=== PATIENT | female | born 1955 | race Caucasian/White ===

== ENCOUNTER → 2018-02-17 08:46 | Outpatient (CLI) | payer OTHER, SELFPAY ==
--- NOTE | 2018-02-17 08:51 | DI.MRI.S_ITS ---
PROCEDURE: MR CERVICAL SPINE WO CON INDICATIONS: axial neck pain TECHNIQUE: Noncontrast sagittal T1 spin echo and T2 fast spin echo, sagittal STIR, foraminal oblique sagittal T2 fast spin echo, and axial gradient echo or T2 fast spin echo through the cervical spine. COMPARISON: , , C-SPINE WITHOUT CONTRAST, 07/14/2015, 14:59. FINDINGS: Image quality: Mildly degraded by patient motion during image acquisition. Alignment and Curvature: There is normal bony alignment. Bone Marrow: Marrow demonstrates normal overall signal. Spinal Cord: Visualized spinal cord has normal size and signal. No cerebellar tonsillar herniation. Paraspinous Soft Tissues: No paravertebral masses. Prevertebral soft tissues are normal in thickness. C2-C3: Mild degenerative disc disease which is asymmetrically greater on the right than the left, with a slight posterior right-sided disc bulge posteriorly, and extending into the posterolateral recess. Facet osteoarthritis also is greater on the right, resulting in mild to moderate right and no left foraminal stenosis, and no impingement on the cervical cord at this level. C3-C4: The degenerative disc disease at this level is moderate in severity, slightly greater on the left than the right, and associated with asymmetric facet osteoarthritis greater on the left than the right. There is mild right and moderate left foraminal stenosis as result, but no appreciable impingement by degenerative change on the cervical cord. C4-C5: Asymmetric right greater than left degenerative disc disease with a posterior transverse broad-based disc bulge slightly greater on the right than the left resulting in effacement of CSF from the anterior cervical cord and thecal sac area, right greater than left. Foraminal stenosis is also greater on the right, resulting in mild right and no identifiable left foraminal stenosis. C5-C6: Mild degenerative disc disease, mild posterior broad-based transverse disc bulge without impingement on the cervical cord, but there is effacement of CSF from the anterior thecal sac at this level. The facet osteoarthritis is mild, symmetric, and produces only minimal foraminal stenosis without expected nerve root impingement. C6-C7: Mild degenerative disc disease, small posterior broad-based transverse disc bulge. No significant spinal or foraminal stenosis. C7-T1: Quality of visualization is blurred on the axial imaging but there appears to be a posterior broad-based transverse disc bulge that is slight, and effaces CSF only to a mild degree at the anterior border of the cervical cord at this level. No definite foraminal stenosis. IMPRESSION: Multilevel symmetric and asymmetric degenerative changes as discussed above predominantly involving the facet joints but also involving the cervical discs and adjacent anterior cervical cord at C3-4 and C4-5. No disc herniation is found. No definite acute disease is seen. With reference to the prior MR scanning 07/14/15 there has been only a slight degree of interval increased facet and disc degeneration. Dictated by: David Perry M.D. on 02/18/2018 at 16:31 Approved by: David Perry M.D. on 02/18/2018 at 16:37
== END ==
PROVIDERS: PCP Internal Medicine; Visit Provider Physical Medicine & Rehabilitation
DX: M50.30 Other cervical disc degeneration, unspecified cervical region (principal); M47.812 Spondylosis without myelopathy or radiculopathy, cervical region
CPT/HCPCS: 72141

== ENCOUNTER 2018-04-21 08:41 | Outpatient (CLI) | payer OTHER, SELFPAY ==
[2018-04-21] VITALS (9 sets, daily range): BP systolic 108–129; BP diastolic 73–94; PULSE 76–110; RESP 10–18; TEMP 36.2; O2SAT 97–100
--- NOTE | 2018-04-21 08:42 | DI.RAD.S_ITS ---
PROCEDURE: PAIN C/T INTERLAMINAR INJECT INDICATIONS: Cervical stenosis with radiculopathy FINDINGS: Fluoroscopic spot filming was performed to verify placement of spinal needles at the C6 level(s), as seen on the films. Appropriate location(s) of the needle tip(s) was confirmed by injection of iodinated contrast. IMPRESSION: Intraoperative imaging for needle injection lower cervical spine Dictated by: Karthik Helms M.D. on 04/22/2018 at 8:27 Approved by: Karthik Helms M.D. on 04/22/2018 at 8:29
--- NOTE | 2018-04-21 09:38 | PM.PROC.1 ---
Procedures Date/Time Date of procedure: 04/21/18 Time of procedure: 10:05 General Procedure description: PREOP DIAGNOSIS 1. CERVICAL STENOSIS, 2. CERVICAL HNP WITH UPPER EXTREMITY RADICULAR FEATURES, POST OP DIAGNOSIS 1. CERVICAL STENOSIS, 2. CERVICAL HNP WITH UPPER EXTREMITY RADICULAR FEATURES, PROCEDURES 1. FLUORSCOPICALLY GUIDED CONTRAST CONTROLLED INTERLAMINAR EPIDURAL STEROID INJECTION - C6/7 TL AFSHIN PHYSICIAN: Romulo Tam, INDICATIONS Michelle is referred by Dr. Romero for treatment of Cervical HNP with Upper Extremity Paresthesias FINDINGS Cervical Stenosis due to disc deterioration and nerve root irritation and nerve root irritation DESCRIPTION OF PROCEDURE Fluoroscopically guided, contrast-controlled C6/7 translaminar epidural steroid injection with conscious sedation. Following denial of allergy and review of potential side effects and complications, including, but not necessarily limited to, infection, allergic reaction, local tissue breakdown, temporary as well as permanent nerve injury, stroke, paralysis, and possible , the patient indicated that patient understood and agreed to proceed. An informed consent document was signed by the patient, witnessed by a nurse, and placed in the patient's chart. Additionally, other treatment options including modalities, medications, and physical therapy were reviewed with the patient. After review of previous anaesthesic history and IV conscious sedation the patient was deemed safe to proceed with todays procedure with IV conscious sedation as ASA class II designation. Safety time-out was performed to confirm patient ID, procedure to be performed and site of procedure. IV sedation was accomplished with a combination of 3mg of Versed administered by the RN after DO order, titrated to patient comfort during the course of the procedure while the patient remained responsive to all verbal commands. In the prone position, following sterile prep and drape of the cervical region, the C6/7 translaminar space was identified fluoroscopically. The skin was anesthetized via a 25-gauge 1.5-inch needle with 1% lidocaine solution. At this point, a 25-gauge, 2.5-inch short bevel spinal needle was atraumatically introduced and advanced under fluoroscopic guidance into epidural space at the C6/7 translaminar space. Depth was confirmed on lateral view. Radiological data, including multiple fluoroscopic views of the cervical spine, reveal a spinal needle at the C6/7 translaminar space. Lateral views then show placement of the needle in the epidural space. Subsequent views show contrast material flowing superiorly and inferiorly in the epidural space. DSA fluoroscopy with live contrast injection, once again, confirmed no vascular or intrathecal uptake. At this point, using loss of resistance technique with saline and air, the epidural space was entered. Following negative aspiration, injection of approximately 1.5 cc of Isovue-200 with live fluoroscopy in the AP view confirmed epidural flow in the epidural space without vascular or intrathecal uptake observed. Subsequently, a test dose of 1 cc of 1% lidocaine solution was injected and patient was observed for two minutes without signs or symptoms of complications, including abdominal pain, shortness of breath, bilateral upper or lower extremity weakness, nausea and vomiting, prior to steroid injection. At this point, 3 cc or 30 mg of dexamethasone was then injected without incident. The patient tolerated the procedure well without signs or symptoms of complications prior to being transferred to the recovery area for further monitoring, The patient was then transferred to the recovery area where they were observed for an appropriate period of time after the injection. The patient reported a VAS score of 6 prior to the procedure and a post-procedure VAS of 0. Total Fluoroscopy Time: 37.0 seconds Total Conscious Time: 24min POST OP INSTRUCTIONS The patient was provided a Pain Log to continue to record their response to the target-specific procedure prior to follow-up visit with the referring provider. Additionally, specific post-injection care instructions and a contact number to our office were provided if concerns arise regarding possible complications associated with the procedure are suspected. Romulo Tam, Complications: none
[2018-04-21] MEDS: IOPAMIDOL 15 ML VIAL 3 ML INJ (10:02)
[2018-04-21] MEDS: LIDOCAINE 1% 20 ML INJ 5 ML INJ (10:02)
[2018-04-21] MEDS: MIDAZOLAM 5 MG/5 ML VIAL IV (10:02)
[2018-04-21] MEDS: DEXAMETHASONE 10 MG/ML VIAL 30 MG INJ (10:02)
--- NOTE | 2018-04-22 17:20 | PC.NURSE ---
POST PROCEDURE FOLLOW UP CALL MADE, LEFT MSG.
== END 2018-04-21 10:36 | disposition home or self-care (01) ==
LOC: RAD 08:42
PROVIDERS: PCP Internal Medicine; Visit Provider Physical Medicine & Rehabilitation
DX: M50.123 Cervical disc disorder at C6-C7 level with radiculopathy (principal); M48.02 Spinal stenosis, cervical region
CPT/HCPCS: 62321; 99152; J1100; J2250

== ENCOUNTER 2019-02-16 09:58 | Outpatient (CLI) | payer OTHER, SELFPAY ==
[2019-02-16] VITALS (8 sets, daily range): BP systolic 113–151; BP diastolic 68–90; PULSE 81–89; RESP 16–20; TEMP 36.9; O2SAT 96–100
--- NOTE | 2019-02-16 10:40 | DI.RAD.S_ITS ---
PROCEDURE: PAIN C/T INTERLAMINAR INJECT INDICATIONS: SPINAL STENOSIS FINDINGS: Fluoroscopic spot filming was performed to verify placement of spinal needles at the C6-C7 level(s), as labeled on the films. Appropriate location(s) of the needle tip(s) was confirmed by injection of iodinated contrast. Dictated by: Jonathan Hawthorne M.D. on 02/16/2019 at 12:46 Approved by: Jonathan Hawthorne M.D. on 02/16/2019 at 12:47
[2019-02-16] MEDS: MIDAZOLAM 5 MG/5 ML VIAL IV (11:23)
[2019-02-16] MEDS: fentaNYL 100 MCG/2 ML INJ 50 MCG IV (11:24)
[2019-02-16] MEDS: DEXAMETHASONE 10 MG/ML VIAL 20 MG INJ (11:28)
[2019-02-16] MEDS: LIDOCAINE 1% 20 ML INJ 5 ML INJ (11:28)
--- NOTE | 2019-02-16 11:35 | PC.NURSE ---
ASSISTING PT OFF TABLE AND TRANSPORTING TO POST PROC AREA IN STABLE CONDITION
--- NOTE | 2019-02-16 11:40 | P.PCN_ITS ---
Procedures Date/Time Date of procedure: 02/16/19 Time of procedure: 11:39 General Procedure description: PREOP DIAGNOSIS 1. CERVICAL STENOSIS, 2. CERVICAL HNP WITH UPPER EXTREMITY RADICULAR FEATURES, POST OP DIAGNOSIS 1. CERVICAL STENOSIS, 2. CERVICAL HNP WITH UPPER EXTREMITY RADICULAR FEATURES, PROCEDURES 1. FLUORSCOPICALLY GUIDED CONTRAST CONTROLLED INTERLAMINAR EPIDURAL STEROID INJECTION - C6/7 TL AFSHIN PHYSICIAN: DO KERWIN Carranza Michelle is referred by Dr. Romero for treatment of Cervical HNP with Upper Extremity Paresthesias. FINDINGS Cervical Stenosis due to disc deterioration and nerve root irritation and nerve root irritation DESCRIPTION OF PROCEDURE Fluoroscopically guided, contrast-controlled C6/7 translaminar epidural steroid injection with conscious sedation. Following denial of allergy and review of potential side effects and complications, including, but not necessarily limited to, infection, allergic reaction, local tissue breakdown, temporary as well as permanent nerve injury, stroke, paralysis, and possible , the patient indicated that patient understood and agreed to proceed. An informed consent document was signed by the patient, witnessed by a nurse, and placed in the patient's chart. Additionally, other treatment options including modalities, medications, and physical therapy were reviewed with the patient. After review of previous anaesthesic history and IV conscious sedation the patient was deemed safe to proceed with todays procedure with IV conscious sedation as ASA class II designation. Safety time-out was performed to confirm patient ID, procedure to be performed and site of procedure. IV sedation was accomplished with a combination of 4mg of Versed and 50mcg of Fentanyl administered by the RN after DO order, titrated to patient comfort during the course of the procedure while the patient remained responsive to all verbal commands. In the prone position, following sterile prep and drape of the cervical region, the C6/7 translaminar space was identified fluoroscopically. The skin was anesthetized via a 25-gauge 1.5-inch needle with 1% lidocaine solution. At this point, a 25-gauge, 2.5-inch short bevel spinal needle was atraumatically i ntroduced and advanced under fluoroscopic guidance into epidural space at the C6/7 translaminar space. Depth was confirmed on lateral view. Radiological data, including multiple fluoroscopic views of the cervical spine, reveal a spinal needle at the C6/7 translaminar space. Lateral views then show placement of the needle in the epidural space. Subsequent views show contrast material flowing superiorly and inferiorly in the epidural space. DSA fluoroscopy with live contrast injection, once again, confirmed no vascular or intrathecal uptake. At this point, using loss of resistance technique with saline and air, the epidural space was entered. Following negative aspiration, injection of approximately 1.5 cc of Isovue-200 with live fluoroscopy in the AP view confirmed epidural flow in the epidural space without vascular or intrathecal uptake observed. Subsequently, a test dose of 1 cc of 1% lidocaine solution was injected and patient was observed for two minutes without signs or symptoms of complications, including abdominal pain, shortness of breath, bilateral upper or lower extremity weakness, nausea and vomiting, prior to steroid injection. At this point, 2cc or 20mg of dexamethasone was then injected without incident. The patient tolerated the procedure well without signs or symptoms of complications prior to being transferred to the recovery area for further noelle toring, The patient was then transferred to the recovery area where they were observed for an appropriate period of time after the injection. The patient reported a VAS score of 6 prior to the procedure and a post-procedure VAS of 0. Total Fluoroscopy Time: 37.0 seconds Total Conscious Time: 24min POST OP INSTRUCTIONS The patient was provided a Pain Log to continue to record their response to the target-specific procedure prior to follow-up visit with the referring provider. Additionally, specific post-injection care instructions and a contact number to our office were provided if concerns arise regarding possible complications associated with the procedure are suspected. Romulo Tam DO Complications: none
--- NOTE | 2019-02-16 11:57 | PC.NURSE ---
Pt returned from procedure via w/c awake and alert and able to move from w/c to chair with standby assist. Resumed monitoring from Sisi DERAS.
== END 2019-02-16 12:10 ==
PROVIDERS: PCP Internal Medicine; Visit Provider Physical Medicine & Rehabilitation
DX: M48.02 Spinal stenosis, cervical region (principal); M50.123 Cervical disc disorder at C6-C7 level with radiculopathy
CPT/HCPCS: 62321; 99152; J1100; J2250; J3010

== ENCOUNTER 2019-12-08 09:11 | Outpatient (CLI) | payer OTHER, SELFPAY ==
[2019-12-08] VITALS (9 sets, daily range): BP systolic 136–166; BP diastolic 93–105; PULSE 89–104; RESP 16; TEMP 36.3; O2SAT 97–100
--- NOTE | 2019-12-08 09:13 | DI.RAD.S_ITS ---
PROCEDURE: PAIN C/T INTERLAMINAR INJECT INDICATIONS: SPINAL STENOSIS FINDINGS: Fluoroscopic spot filming was performed to verify placement of spinal needles at the C6-C7 level(s), as labeled on the films. Appropriate location(s) of the needle tip(s) was confirmed by injection of iodinated contrast. Dictated by: Jonathan Hawthorne M.D. on 12/08/2019 at 13:33 Approved by: Jonathan Hawthorne M.D. on 12/08/2019 at 13:34
[2019-12-08] MEDS: MIDAZOLAM 5 MG/5 ML VIAL IV (10:46)
[2019-12-08] MEDS: fentaNYL 100 MCG/2 ML INJ 50 MCG IV (10:46)
[2019-12-08] MEDS: IOPAMIDOL 15 ML VIAL 3 ML INJ (10:52)
[2019-12-08] MEDS: DEXAMETHASONE 10 MG/ML VIAL 20 MG INJ (10:52)
[2019-12-08] MEDS: BUPIVACAINE 0.25% (PF) VIAL 2 ML INJ (10:52)
--- NOTE | 2019-12-08 10:56 | PC.NURSE ---
ASSISTING PT OFF TABLE AND TRANSPORTING TO POST PROC AREA IN STABLE CONDITION. PASSING RN CARE OF PT OFF TO SHAYNE Calderon RN.
--- NOTE | 2019-12-08 11:00 | P.PCN_ITS ---
Procedures Date/Time Date of procedure: 12/08/19 Time of procedure: 11:00 General Procedure description: PREOP DIAGNOSIS 1. CERVICAL STENOSIS, 2. CERVICAL HNP WITH UPPER EXTREMITY RADICULAR FEATURES, POST OP DIAGNOSIS 1. CERVICAL STENOSIS, 2. CERVICAL HNP WITH UPPER EXTREMITY RADICULAR FEATURES, PROCEDURES 1. FLUORSCOPICALLY GUIDED CONTRAST CONTROLLED INTERLAMINAR EPIDURAL STEROID INJECTION - C6/7 TL AFSHIN PHYSICIAN: DO KERWIN Carranza Michelle is referred by Dr. Romero for treatment of Cervical HNP with Upper Extremity Paresthesias. FINDINGS Cervical Stenosis due to disc deterioration and nerve root irritation and nerve root irritation DESCRIPTION OF PROCEDURE Fluoroscopically guided, contrast-controlled C6/7 translaminar epidural steroid injection with conscious sedation. Following review of allergy and review of potential side effects and complications, including, but not necessarily limited to, infection, allergic reaction, local tissue breakdown, temporary as well as permanent nerve injury, stroke, paralysis, and possible , the patient indicated that patient understood and agreed to proceed. An informed consent document was signed by the patient, witnessed by a nurse, and placed in the patient's chart. Additionally, other treatment options including modalities, medications, and physical therapy were reviewed with the patient. After review of previous anaesthesic history and IV conscious sedation the patient was deemed safe to proceed with todays procedure with IV conscious sedation as ASA class II designation. Safety time-out was performed to confirm patient ID, procedure to be performed and site of procedure. IV sedation was accomplished with a combination of 3mg of Versed and 50mcg of Fentanyl administered by the RN after DO order, titrated to patient comfort during the course of the procedure while the patient remained responsive to all verbal commands. In the prone position, following sterile prep and drape of the cervical region, the C6/7 translaminar space was identified fluoroscopically. The skin was anesthetized via a 25-gauge 1.5-inch needle with 1% lidocaine solution. At this point, a 25-gauge, 2.5-inch short bevel spinal needle was atraumatically i ntroduced and advanced under fluoroscopic guidance into epidural space at the C6/7 translaminar space. Depth was confirmed on lateral view. Radiological data, including multiple fluoroscopic views of the cervical spine, reveal a spinal needle at the C6/7 translaminar space. Lateral views then show placement of the needle in the epidural space. Subsequent views show contrast material flowing superiorly and inferiorly in the epidural space. DSA fluoroscopy with live contrast injection, once again, confirmed no vascular or intrathecal uptake. At this point, using loss of resistance technique with saline and air, the epidural space was entered. Following negative aspiration, injection of approximately 1.5 cc of Isovue-200 with live fluoroscopy in the AP view confirmed epidural flow in the epidural space without vascular or intrathecal uptake observed. Subsequently, a test dose of 1 cc of 1% lidocaine solution was injected and patient was observed for two minutes without signs or symptoms of complications, including abdominal pain, shortness of breath, bilateral upper or lower extremity weakness, nausea and vomiting, prior to steroid injection. At this point, 3cc or 30mg of dexamethasone was then injected without incident. The patient tolerated the procedure well without signs or symptoms of complications prior to being transferred to the recovery area for further noelle toring, The patient was then transferred to the recovery area where they were observed for an appropriate period of time after the injection. The patient reported a VAS score of 6 prior to the procedure and a post-procedure VAS of 0. Total Fluoroscopy Time: 23seconds Total Conscious Time: 24min POST OP INSTRUCTIONS The patient was provided a Pain Log to continue to record their response to the target-specific procedure prior to follow-up visit with the referring provider. Additionally, specific post-injection care instructions and a contact number to our office were provided if concerns arise regarding possible complications associated with the procedure are suspected. Romulo Tam DO Complications: none
--- NOTE | 2019-12-08 11:20 | PC.NURSE ---
1105: Received patient post procedure, awake, alert, and pleasant, by Sisi LOCKETT VSS upon arrival.
== END 2019-12-08 11:15 | disposition home or self-care (01) ==
LOC: RAD 09:13
PROVIDERS: PCP Internal Medicine; Referring Provider Physical Medicine & Rehabilitation; Visit Provider Physical Medicine & Rehabilitation
DX: M48.02 Spinal stenosis, cervical region (principal); M50.123 Cervical disc disorder at C6-C7 level with radiculopathy; R20.2 Paresthesia of skin
CPT/HCPCS: 62321; 99152; J1100; J2250; J3010

== ENCOUNTER → 2020-08-07 12:20 | Outpatient (CLI) | payer OTHER, SELFPAY ==
--- NOTE | 2020-08-07 12:21 | DI.RAD.S_ITS ---
PROCEDURE: XR CERVICAL SPINE 4V OR 5V INDICATIONS: UPDATE IMAGES TECHNIQUE: 5 views of the cervical spine acquired. COMPARISON: [facility], RF, CERVICAL TRANSLAMINAR, 08/27/2017, 10:12. [facility], MR, MR CERVICAL SPINE WO CON, 02/17/2018, 9:17. FINDINGS: Bones: No fractures or dislocations to the C7 level. Mild anterolisthesis of C4 on C5. Mild degenerative changes. Oblique images demonstrate moderate neural foraminal stenosis at the right C3-C4. Soft tissues: No prevertebral soft tissue swelling. IMPRESSION: Mild anterolisthesis of C4 on C5. Mild degenerative changes. Moderate neural foraminal stenosis at right C3-C4. Dictated by: Bonifacio Barreto M.D. on 08/07/2020 at 17:02 Approved by: Bonifacio Barreto M.D. on 08/07/2020 at 17:08
== END ==
PROVIDERS: PCP Internal Medicine; Referring Provider Physical Medicine & Rehabilitation; Visit Provider Physical Medicine & Rehabilitation
DX: M48.02 Spinal stenosis, cervical region (principal); M47.812 Spondylosis without myelopathy or radiculopathy, cervical region; M43.12 Spondylolisthesis, cervical region; M50.30 Other cervical disc degeneration, unspecified cervical region
CPT/HCPCS: 72050

== ENCOUNTER → 2020-08-14 08:49 | Outpatient (CLI) | payer OTHER, SELFPAY ==
[2020-08-14 11:35] LABS: COVID19 -Nasal RAPID Negative (Negative)
== END ==
PROVIDERS: PCP Internal Medicine; Visit Provider Physician Assistant
DX: Z11.59 Encounter for screening for other viral diseases (principal)
CPT/HCPCS: 87635

== ENCOUNTER 2020-08-15 07:19 | Outpatient (CLI) | payer OTHER, SELFPAY ==
[2020-08-15] VITALS (10 sets, daily range): BP systolic 110–144; BP diastolic 72–92; PULSE 95–98; RESP 10–19; TEMP 36.4; O2SAT 94–100
--- NOTE | 2020-08-15 07:20 | DI.RAD.S_ITS ---
PROCEDURE: PAIN C/T FACET INJ/BLK 1ST L INDICATIONS: SPINAL STENOSIS COMPARISON: [facility], CR, XR CERVICAL SPINE 4V OR 5V, 08/07/2020, 11:22. FINDINGS: Fluoroscopic spot filming was performed to verify placement of spinal needles at the C4-C5, C5-C6, and C6-C7 levels on the right, as labeled on the films. Appropriate location(s) of the needle tip(s) was confirmed by injection of iodinated contrast. IMPRESSION: Intraprocedural examination within normal limits. Dictated by: Ton Fair M.D. on 08/15/2020 at 8:46 Approved by: Ton Fair M.D. on 08/15/2020 at 8:47
[2020-08-15] MEDS: fentaNYL 100 MCG/2 ML INJ 50 MCG IV (08:16)
[2020-08-15] MEDS: MIDAZOLAM 5 MG/5 ML VIAL IV (08:19)
[2020-08-15] MEDS: IOPAMIDOL 15 ML VIAL 3 ML INJ (08:22)
[2020-08-15] MEDS: DEXAMETHASONE 10 MG/ML VIAL 30 MG INJ (08:22)
[2020-08-15] MEDS: BUPIVACAINE 0.5% (PF) VIAL 2 ML INJ (08:23)
--- NOTE | 2020-08-15 08:33 | P.PCN_ITS ---
Date/Time/Diagnoses Date of procedure: 08/15/20 Time of procedure: 08:34 Pre-procedure diagnosis: 1. FACET ARTHROPATHY 2. AXIAL NECK PAIN Post-procedure diagnosis: same Procedure Notes Procedure: 1. FLUOROSCOPICALLY GUIDED, CONTRAST-CONTROLLED RIGHT C4/5, C5/6 AND C6/7 FACET JOINT INJECTIONS WITH CONSCIOUS SEDATION. Indications: Frances Martinez is referred by Dr. Romero for treatment of Axial Neck Pain Physician: Romulo Tam Total Fluoroscopy time (seconds): 8 Total sedation minutes: 14 Complications: none Procedure in detail & Post-procedure care: DESCRIPTION OF PROCEDURE Fluoroscopically guided, contrast-controlled right C4/5, C5/6 and C6/7 facet joint injections with conscious sedation. Following review of allergy and review of potential side effects and complications, including, but not necessarily limited to, infection, allergic reaction, local tissue breakdown, stroke, temporary or permanent nerve injury and paralysis, the patient indicated that the patient understood and agreed to proceed. An informed consent document was signed by the patient, witnessed by a nurse, and placed in the patient's chart. Additionally, other treatment options including medications, modalities, and physical therapy were reviewed with the patient. After review of previous anaesthesic history and IV conscious sedation the patient was deemed safe to proceed with today?s procedure with IV conscious sedation as ASA class II designation. Safety time-out was performed to confirm patient ID, procedure to be performed and site of procedure. IV sedation was accomplished with a combination of 2mg of Versed and 50mcg of Fentanyl was administered by the RN after DO order, titrated to patient comfort during the course of the procedure while the patient remained responsive to all verbal commands In the prone position, following sterile prep and drape of the cervical spine region, the posterior aspect of the right C4/5, C5/6 and C6/7 facet joints were identified fluoroscopically. The skin was anesthetized via a 25-gauge 1.5-inch needle with 1% lidocaine solution into the corresponding facet joints. At this point, a 25-gauge 2.5-inch spinal needle was atraumatically introduced and advanced under fluoroscopic guidance into the corresponding facet joints. Following negative aspiration, injections of approximately 0.2-cc of Isovue 200 confirmed interarticular placement without vascular uptake. At this point, a total of 1cc including 0.5cc or 5 mg of dexamethasone combined with 0.5cc of 1% lidocaine solution was injected without complication into each of the corresponding facet joints. The procedure tolerated the procedure well without signs or symptoms of complications prior to transfer to the recovery area continued monitoring without incident. The patient was then transferred to the recovery area where they were observed for an appropriate period of time after the injection. The patient reported a VAS score of 7 prior to the procedure and a post- procedure VAS of 0. POST OP INSTRUCTIONS They were provided a Pain Log to continue to record their response to the target-specific procedure prior to their follow-up visit with their referring physician. Additionally, specific post-injection care instructions and a contact number to our office were provided if concerns arise regarding possible complications associated with the procedure are suspected.
--- NOTE | 2020-08-15 10:52 | PC.NURSE ---
pt able to walk on own well prior to discharge, strong steady gait noted.
== END 2020-08-15 08:55 | disposition home or self-care (01) ==
LOC: RAD 07:20
PROVIDERS: PCP Internal Medicine; Referring Provider Internal Medicine; Visit Provider Physical Medicine & Rehabilitation
DX: M47.812 Spondylosis without myelopathy or radiculopathy, cervical region (principal); M48.02 Spinal stenosis, cervical region
CPT/HCPCS: 64490; 64491; 64492; 99152; J1100; J2250; J3010

== ENCOUNTER 2021-02-09 07:33 | Emergency (ER) | payer OTHER, SELFPAY ==
[2021-02-09] VITALS (7 sets, daily range): BP systolic 101–180; BP diastolic 70–116; PULSE 62–114; RESP 16–24; TEMP 37.7; O2SAT 96–100; BMI 24.6
--- NOTE | 2021-02-09 07:57 | ED_ITS ---
HPI - Anxiety General Chief Complaint: Anxiety Stated Complaint: anxiety Time Seen by Provider: 02/09/21 07:51 Source: patient Mode of arrival: Family Vehicle Limitations: no limitations History of Present Illness HPI narrative: Patient is 65-year-old female has a history of a splenectomy, insulinoma--surgically removed years ago is, severe depression and anxiety presenting. She says she is quite anxious and nervous about which she is fully vaccinated. She is here with her sister states that there is more than that. It sounds as though she has some stressors her nephew and new baby are currently living with her aunt sounds as though dad recently. Her medication has initially been managed by her PCP. She has try to get into a psychiatrist unfortunately no one is available. She is feeling overwhelmed. Denies any suicidal or homicidal ideations. Sister states she has had blackouts. She states she yelled and screamed at Family at [place] time and she did again recently she has no memory of doing this. Her mood is quite labile. She has significant insomnia and sleep issues. MD complaint: anxiety Related Data Home Medications Medication Instructions Recorded Confirmed levalbuterol tartrate 45 See Rx Instructions .ROUTE 08/06/18 02/09/21 mcg/actuation aerosol inhaler .COMPLEX 30 Days #15 gram lisinopril 10 mg tablet See Rx Instructions .ROUTE 08/06/18 02/09/21 .COMPLEX 90 Days #90 tab montelukast 10 mg tablet See Rx Instructions .ROUTE 08/06/18 02/09/21 .COMPLEX 90 Days #90 tab omeprazole 20 mg capsule,delayed See Rx Instructions .ROUTE 08/06/18 02/09/21 release .COMPLEX 90 Days #180 cap sucralfate 1 gram tablet See Rx Instructions .ROUTE 08/06/18 02/09/21 .COMPLEX 30 Days #120 tab temazepam 15 mg capsule See Rx Instructions .ROUTE 08/06/18 02/09/21 .COMPLEX 30 Days #30 cap tramadol 50 mg tablet See Rx Instructions .ROUTE 08/06/18 02/09/21 .COMPLEX 30 Days #180 tab buspirone 10 mg tablet 10 mg PO BID 11/20/18 02/09/21 fluoxetine 40 mg capsule 40 mg PO DAILY 11/20/18 02/09/21 clonazepam 0.5 mg tablet 0.5 mg PO BID 08/07/20 02/09/21 Advair HFA 02/09/21 Previous Rx's Medication Instructions Recorded diazepam 10 mg tablet 10 mg PO .COMPLEX PRN #10 tab 08/07/20 celecoxib 200 mg capsule See Rx Instructions .ROUTE 08/10/20 .COMPLEX #90 cap gabapentin 600 mg tablet See Rx Instructions .ROUTE 10/02/20 .COMPLEX #180 tab cyclobenzaprine 10 mg tablet 10 mg PO BID PRN #60 tab 10/16/20 Allergies Allergy/AdvReac Type Severity Reaction Status Date / Time Penicillins [PENICILLINS] Allergy Unknown childhood Verified 08/07/20 13:31 reaction Review of Systems Review of Systems Narrative: GENERAL: Denies chills,fever HEENT: Denies throat pain RESPIRATORY: Denies dyspnea, cough, wheezing CARDIOVASCULAR: Denies chest pain, palpitations GASTROINTESTINAL: Denies nausea, vomiting MUSCULOSKELETAL: Denies extremity pain, injury SKIN: No rash, no laceration, no pruritus NEUROLOGIC: Denies weakness, dizziness, headache, numbness 8 point review of systems is negative except for those stated above and HPI Psychiatric Psychiatric: Reports system reviewed and no additional complaints, except as documented, Reports anxiety, Reports hopelessness, Reports irritability and Reports panic attacks Patient History Surgical History (Updated 08/07/20 @ 14:03 by Romulo Tam DO) Hx of splenectomy Social History Smoking Status: Former smoker Smoking Status: Former smoker alcohol intake frequency: a few times a week Alcohol type: beer Substance Use Type: does not use Exam Initial Vital Signs Initial Vital Signs: Vital Signs Pulse Rate 90 02/09/21 07:42 Pulse Oximetry 100 02/09/21 07:42 GENERAL: A 65-year-old female tearful anxious, good eye contact, good hygiene CARDIOVASCULAR: peripheral pulses in tact, cap refill <2 sec RESPIRATORY: No respiratory distress, speaks in full sentences without difficulty EXTREMITIES: Normal range of motion, no clubbing or edema. Neurovascularly intact NEUROLOGICAL: Cranial nerves II through XII grossly intact. Normal gait and speech. SKIN: Warm, dry, no petechiae, no rashes or lesions. Course Orders Ordered: ED Orders 02/09/21 09:30 COVID19 -Nasal swab/Pre-Proc Stat Discontinued Medications Hydroxyzine Pamoate (Hydroxyzine Pamoate 25 Mg Capsule) 25 mg PO NOW ONE Stop: 02/09/21 15:02 Last Admin: 02/09/21 15:11 Dose: 25 mg Documented by: RICARDO Lorazepam (Lorazepam 0.5 Mg Tablet) 1 mg PO NOW ONE Stop: 02/09/21 07:53 Last Admin: 02/09/21 07:59 Dose: 1 mg Documented by: SATINDER Vital Signs Vital signs: Vital Signs - 8 hr 02/09/21 10:32 02/09/21 10:33 02/09/21 13:26 Pulse Rate 96 H 62 Respiratory Rate 23 Blood Pressure 159/112 H 167/77 H Pulse Oximetry 97 96 96 02/09/21 13:44 02/09/21 15:16 Pulse Rate 109 H 100 H Respiratory Rate 16 Blood Pressure 101/70 145/99 H Pulse Oximetry 96 97 MDM - Anxiety Lab Data Attestation: I reviewed the patient's lab results. Result diagrams: 02/09/21 08:18 02/09/21 08:18 Labs: Lab Results 02/09/21 02/09/21 02/09/21 Range/Units 08:05 08:07 08:18 WBC 7.1 (4.5-11.0) X10^3/uL RBC 4.32 (4.0-5.2) X10^6/uL Hgb 11.8 L (12.0-16.0) g/dL Hct 36.5 (36-46) % MCV 84.6 (80-100) fL MCH 27.4 (26-34) PG MCHC 32.4 (30-36) % RDW 15.7 H (11.6-14.8) % Plt Count 316 (150-400) X10^3/uL Neut % (Auto) 56.4 (50-75) % Lymph % (Auto) 26.2 (25-40) % [facility] % (Auto) 11.5 (3-14) % Eos % (Auto) 5.1 H (2-4) % Baso % (Auto) 0.8 (0-2) % Neut # (Auto) 4000 (0627-0222) /uL Lymph # (Auto) 1800 (4809-7613) /uL [facility] # (Auto) 800 (0-900) /uL Eos # (Auto) 400 (0-450) /uL Baso # (Auto) 100 (0-100) /uL Sodium (137-145) mmol/L Potassium (3.4-5.1) mmol/L Chloride (98-107) mmol/L Carbon Dioxide (22-32) mmol/L BUN (7-17) mg/dL Creatinine (0.52-1.04) mg/dL Estimated GFR (>60) mL/min BUN/Creatinine Ratio (6-22) Glucose (80-110) mg/dL Calcium (8.4-10.2) mg/dL Magnesium (1.6-2.3) mg/dL Total Bilirubin (0.2-1.3) mg/dL AST (14-36) IU/L ALT (<35) IU/L Alkaline Phosphatase (38-126) U/L Total Protein (6.3-8.2) g/dL Albumin (3.5-5.0) g/dL Globulin (1.7-4.1) g/dL Albumin/Globulin Ratio (1.0-2.8) TSH (0.47-4.68) uIU/mL Urine RBC 1-5/hpf (0-5/HPF) Urine WBC 0-1/hpf (0-5/HPF) Ur Squamous Epith Cells 0-1 /hpf (0-5/HPF) Triple Phos Crystals Occasional Urine Bacteria Moderate (10-30) H (None) Ur Culture Indicated? Specimen cultured U Opiates 300ng/mL cut Negative (Negative) Ur Oxycodone Screen Negative (Negative) Urine Methadone Screen Negative (Negative) Ur Barbiturates Screen Negative (Negative) U Tricyclic Antidepress Positive H (Negative) Ur Phencyclidine Scrn Negative (Negative) Ur Amphetamines Screen Negative (Negative) U Methamphetamines Scrn Negative (Negative) Ur MDMA Scrn (Ecstasy) Negative (Negative) U Benzodiazepines Scrn Negative (Negative) Urine Cocaine Screen Negative (Negative) U Marijuana (THC) Screen Positive H (Negative) Ethyl Alcohol ( - 10) mg/dL SARS-CoV-2 (PCR) (Negative) 02/09/21 02/09/21 02/09/21 Range/Units 08:18 08:18 08:18 WBC (4.5-11.0) X10^3/uL RBC (4.0-5.2) X10^6/uL Hgb (12.0-16.0) g/dL Hct (36-46) % MCV (80-100) fL MCH (26-34) PG MCHC (30-36) % RDW (11.6-14.8) % Plt Count (150-400) X10^3/uL Neut % (Auto) (50-75) % Lymph % (Auto) (25-40) % [facility] % (Auto) (3-14) % Eos % (Auto) (2-4) % Baso % (Auto) (0-2) % Neut # (Auto) (4006-1270) /uL Lymph # (Auto) (5398-8415) /uL [facility] # (Auto) (0-900) /uL Eos # (Auto) (0-450) /uL Baso # (Auto) (0-100) /uL Sodium 137 (137-145) mmol/L Potassium 4.3 (3.4-5.1) mmol/L Chloride 104 (98-107) mmol/L Carbon Dioxide 26 (22-32) mmol/L BUN 9 (7-17) mg/dL Creatinine 0.62 (0.52-1.04) mg/dL Estimated GFR > 60.0 (>60) mL/min BUN/Creatinine Ratio 14.5 (6-22) Glucose 93 (80-110) mg/dL Calcium 9.1 (8.4-10.2) mg/dL Magnesium 1.9 (1.6-2.3) mg/dL Total Bilirubin 0.2 (0.2-1.3) mg/dL AST 24 (14-36) IU/L ALT 14 (<35) IU/L Alkaline Phosphatase 97 (38-126) U/L Total Protein 6.6 (6.3-8.2) g/dL Albumin 3.8 (3.5-5.0) g/dL Globulin 2.8 (1.7-4.1) g/dL Albumin/Globulin Ratio 1.4 (1.0-2.8) TSH 1.45 (0.47-4.68) uIU/mL Urine RBC (0-5/HPF) Urine WBC (0-5/HPF) Ur Squamous Epith Cells (0-5/HPF) Triple Phos Crystals Urine Bacteria (None) Ur Culture Indicated? U Opiates 300ng/mL cut (Negative) Ur Oxycodone Screen (Negative) Urine Methadone Screen (Negative) Ur Barbiturates Screen (Negative) U Tricyclic Antidepress (Negative) Ur Phencyclidine Scrn (Negative) Ur Amphetamines Screen (Negative) U Methamphetamines Scrn (Negative) Ur MDMA Scrn (Ecstasy) (Negative) U Benzodiazepines Scrn (Negative) Urine Cocaine Screen (Negative) U Marijuana (THC) Screen (Negative) Ethyl Alcohol < 10 ( - 10) mg/dL SARS-CoV-2 (PCR) (Negative) 02/09/21 Range/Units 09:30 WBC (4.5-11.0) X10^3/uL RBC (4.0-5.2) X10^6/uL Hgb (12.0-16.0) g/dL Hct (36-46) % MCV (80-100) fL MCH (26-34) PG MCHC (30-36) % RDW (11.6-14.8) % Plt Count (150-400) X10^3/uL Neut % (Auto) (50-75) % Lymph % (Auto) (25-40) % [facility] % (Auto) (3-14) % Eos % (Auto) (2-4) % Baso % (Auto) (0-2) % Neut # (Auto) (9613-8230) /uL Lymph # (Auto) (5566-8249) /uL [facility] # (Auto) (0-900) /uL Eos # (Auto) (0-450) /uL Baso # (Auto) (0-100) /uL Sodium (137-145) mmol/L Potassium (3.4-5.1) mmol/L Chloride (98-107) mmol/L Carbon Dioxide (22-32) mmol/L BUN (7-17) mg/dL Creatinine (0.52-1.04) mg/dL Estimated GFR (>60) mL/min BUN/Creatinine Ratio (6-22) Glucose (80-110) mg/dL Calcium (8.4-10.2) mg/dL Magnesium (1.6-2.3) mg/dL Total Bilirubin (0.2-1.3) mg/dL AST (14-36) IU/L ALT (<35) IU/L Alkaline Phosphatase (38-126) U/L Total Protein (6.3-8.2) g/dL Albumin (3.5-5.0) g/dL Globulin (1.7-4.1) g/dL Albumin/Globulin Ratio (1.0-2.8) TSH (0.47-4.68) uIU/mL Urine RBC (0-5/HPF) Urine WBC (0-5/HPF) Ur Squamous Epith Cells (0-5/HPF) Triple Phos Crystals Urine Bacteria (None) Ur Culture Indicated? U Opiates 300ng/mL cut (Negative) Ur Oxycodone Screen (Negative) Urine Methadone Screen (Negative) Ur Barbiturates Screen (Negative) U Tricyclic Antidepress (Negative) Ur Phencyclidine Scrn (Negative) Ur Amphetamines Screen (Negative) U Methamphetamines Scrn (Negative) Ur MDMA Scrn (Ecstasy) (Negative) U Benzodiazepines Scrn (Negative) Urine Cocaine Screen (Negative) U Marijuana (THC) Screen (Negative) Ethyl Alcohol ( - 10) mg/dL SARS-CoV-2 (PCR) Negative (Negative) Urine Dip Bedside Urine Glucose Negative Bedside Urine Bilirubin - Negative Bedside Urine Ketone - Negative Urine Specific [place] 1.020 Bedside Urine Occult Blood + Bedside Urine pH 7 Bedside Urine Protein - Negative Bedside Urine Urobilinogen - Negative Bedside Urine Nitrite - Negative Bedside Urine Leukocytes ++ 125 Esterase ECG Data Attestation: I personally reviewed and interpreted this ECG as follows: Prior ECG tracings: not available for review Interpretation: Normal sinus rhythm rate 105 p.r. interval 156 QRS [address] changes no T-wave inversions MDM Narrative Medical decision making narrative: The patient evaluated by social Work at this time patient remains voluntary but certainly would benefit from an inpatient stay. She has tried multiple times to get into a psychiatrist but no one is available. This is becoming unmanageable at home. At this time patient is voluntary and is placed into [facility]. Moises Jarrett had Ativan to help with her anxiety however she had it made her more anxious. She is given a dose of hydroxyzine. Discharge Plan Departure Patient Disposition: Xfer Psychiatric Hosp Clinical Impression: Acute anxiety, Depression Referrals: Jovita Romero MD [Primary Care Provider] -
[2021-02-09] MEDS: LORazepam 0.5 MG TABLET 1 MG PO (07:59)
[2021-02-09 08:23] LABS: UR Morphine/Opiate cutoff 300 Negative (Negative); Ur Creatinine Normal (Normal); Ur Specific Gravity Normal (Normal); Urine Amphetamines Negative (Negative); Urine Cocaine Negative (Negative); Urine Methamphetamines Negative (Negative); Urine Tetrahydrocannabinol Positive (Negative); Urine pH Normal (Normal)
[2021-02-09 08:24] LABS: Urine Barbiturates Negative (Negative); Urine Benzodiazepines Negative (Negative); Urine MDMA Negative (Negative); Urine Methadone Negative (Negative); Urine Oxycodone Negative (Negative); Urine Phencyclidine Negative (Negative); Urine Tricyclic Antidepressant Positive (Negative)
[2021-02-09 08:26] LABS: Add Manual Diff / Slide Review NO; Basophils Absolute Auto 100 /uL (0-100); Basophils Percent Auto 0.8 % (0-2); Eosinophils Absolute Auto 400 /uL (0-450); Eosinophils Percent Auto 5.1 % (2-4); Hematocrit 36.5 % (36-46); Hemoglobin 11.8 g/dL (12.0-16.0); Lymphocytes Absolute Auto 1800 /uL (1100-4500); Lymphocytes Percent Auto 26.2 % (25-40); Mean Corpuscular HGB Conc 32.4 % (30-36); Mean Corpuscular Hemoglobin 27.4 PG (26-34); Mean Corpuscular Volume 84.6 fL (80-100); Monocytes Absolute Auto 800 /uL (0-900); Monocytes Percent Auto 11.5 % (3-14); Neutrophils Absolute Auto 4000 /uL (1500-7000); Neutrophils Percent Auto 56.4 % (50-75); Platelet Count 316 X10^3/uL (150-400); Red Blood Cell Count 4.32 X10^6/uL (4.0-5.2); Red Cell Distribution Width 15.7 % (11.6-14.8); White Blood Cell Count 7.1 X10^3/uL (4.5-11.0)
[2021-02-09 08:40] LABS: Alanine Aminotransferase 14 IU/L (<35); Albumin 3.8 g/dL (3.5-5.0); Albumin Globulin Ratio 1.4 (1.0-2.8); Alkaline Phosphatase 97 U/L (38-126); Aspartate Aminotransferase 24 IU/L (14-36); BUN Creatinine Ratio 14.5 (6-22); Bilirubin Total 0.2 mg/dL (0.2-1.3); Blood Urea Nitrogen 9 mg/dL (7-17); Calcium 9.1 mg/dL (8.4-10.2); Carbon Dioxide 26 mmol/L (22-32); Chloride 104 mmol/L (98-107); Estimated Glomerular Filt Rate > 60.0 mL/min (>60); Ethanol (ETOH) < 10 mg/dL; Globulin 2.8 g/dL (1.7-4.1); Glucose 93 mg/dL (80-110); HEMOLYSIS < 15 (0-50); Potassium 4.3 mmol/L (3.4-5.1); Sodium 137 mmol/L (137-145); Total Protein 6.6 g/dL (6.3-8.2)
[2021-02-09 08:56] LABS: RBC Urine 1-5/HPF (0-5/HPF); WBC Urine 0-1/HPF (0-5/HPF)
[2021-02-09 08:57] LABS: Bacteria Urine Moderate (10-30); Squamous Epithelial Cell Urine 0-1 /HPF (0-5/HPF); Triple Phosphate Crystal Urine Occasional
[2021-02-09 08:58] LABS: Culture Indicated Urine Specimen Cultured
--- NOTE | 2021-02-09 09:16 | PC.NURSE ---
Pt still feels anxious after PO Ativan. PT is sitting, talking with friend, calm, non pressured speech.
[2021-02-09 09:42] LABS: Magnesium 1.9 mg/dL (1.6-2.3)
[2021-02-09 09:47] LABS: COVID19 -Nasal RAPID Negative (Negative)
[2021-02-09 10:07] LABS: TSH w/ Reflex to FT4 1.45 uIU/mL (0.47-4.68)
--- NOTE | 2021-02-09 10:46 | CM.SWNOTE ---
Addendum entered by DEBBIE Iqbal 02/09/21 13:45: Patient accepted at [facility], details coordinated throughout the day with [facility] P# [phone] F# [phone]. Final ppk, transport arrangement and update to patient done by ED staff. JW Original Note: BRIDGE CREW MEMBER Note This BR[employer]GE [employer]W MEMBER requested to consult to assess needs of this 65 yo female, presents to the ED, w/encouragement from friend Abigail (at bedside) for increased symptoms of anxiety and depression. Spoke w/ ED provider Mary Henning who has assessed patient upon arrival and feels she would be a good candidate for inpatient psychiatric stabilization. Met w/patient and her friend Abigail (per patient's request) reviewed events and stressors leading up to this ED visit. Patient admits to chronic anxiety and depression throughout her adult life, which she has managed on her own w/supports from good friends and stable family members. Patient admits that w/in the last year, she has experienced increased panic attacks, increased racing thoughts that are turning around and around in my head that I can't quiet which has disrupted her sleep. Patient denies visual and auditory hallucinations. Patient also describes loss of appetite, loss of harriet in daily activities and increased sleeping throughout the day. Friend Abigail explains patient has also been extremely parnell, irritable and has been blacking out in moments of rage at which time patient will yell and verbally clean someone out and not remember the event the next day. Patient admits to feelings of desperation and not wanting to live w/this extreme anxiety, however, endorses no plan for suicide or harm against others. Re: triggers; In addition to isolation d/t the COVID-19 pandemic, patient recently lost her Dad, had to move my mom and has had to communicate more with family members she does not get along with. Patient has attempted to secure counseling and/or psychiatry for months and has not secured an appt d/t MH professionals being booked and/or not accepting her [employer] insurance. Patient arrives to the ED wanting help and remains hopeful things can get better w/psychiatric input. Patient has been prescribed tramadol to aid in sleep, clonazepam, buspirone and fluoxetine in the past but unsure if these are working (?) Spoke w/ Dr Henning; this [employer] MEMBER agrees, patient would be a good candidate for acute stabilization of her MH crisis . Will attempt inpatient psychiatric placement. Patient is agreeable to this plan. DEBBIE Iqbal
--- NOTE | 2021-02-09 13:44 | PC.NURSE ---
Pt meeting with PUG MILL OPERATOR. Waiting for bed palcement. Given water. Friend brought in [place] for lunch.
--- NOTE | 2021-02-09 13:54 | CM.SWNOTE ---
DEPUTY INSURANCE COMMISSIONER note This DEPUTY INSURANCE COMMISSIONER informed by BRAEDEN Kwon that patient has been accepted for placement at [facility]. DEPUTY INSURANCE COMMISSIONER enters room, informs patient of acceptance, and reviews [facility] unit rules paperwork with patient. Patient signs paperwork and DEPUTY INSURANCE COMMISSIONER faxes to [facility]. ABAD Joshi arranges transportation and patient is informed of time of transfer. Plan: Patient to transfer to [facility] for inpatient behavioral health stabilization. DEBBIE Anand
--- NOTE | 2021-02-09 14:34 | PC.NURSE ---
Pt took home home medications, Tramadol, Omeprazole and Sucrafate
[2021-02-09] MEDS: hydrOXYzine pamoate 25 MG CAPSULE PO (15:11)
== END 2021-02-09 15:17 ==
PROVIDERS: Emergency Provider Emergency Medicine; PCP Internal Medicine
DX: F41.9 Anxiety disorder, unspecified (principal); F32.9 Major depressive disorder, single episode, unspecified; Z20.822 Contact with and (suspected) exposure to COVID-19
CPT/HCPCS: 36415; 80053; 80305; 80320; 81003; 81015; 83735; 84443; 85025; 87086; 87635; 93005; 93010; 99284; C9803